=== PATIENT | female | born 1930 | race Caucasian/White ===

== ENCOUNTER 2016-07-10 15:46 | Emergency (ER) | payer MEDICARE ==
[2016-07-10 16:28] LABS: #Eosinphils 0.2 thou/uL (0.0-0.7); #Lymphocytes 0.9 thou/uL (1.20-3.40); #Monocytes 0.6 thou/uL (0.11-0.59); #Neutrophils 3.1 thou/uL (1.40-6.50); %Basophils 0.6 % (0.0-1.0); %Lymphocytes 18.2 % (21.0-51.0); %Monocytes 12.4 % (0.0-10.0); %Neutrophils 64.8 % (42.0-75.0); Hemoglobin 12.5 g/dL (12.0-16.0); Mean Corpuscular HGB CONC 33.7 g/dL (32.0-36.0); Mean Corpuscular Hemoglobin 30.3 pg (27.0-31.0); Mean Platelet Volume 6.2 fL (7.4-10.4); Platelet Count 252 thou/uL (130-400); RBC Distribution Width 12.5 % (11.5-14.5); Red Blood Cell (RBC) Count 4.13 mill/uL (4.20-5.40); White Blood Cell (WBC) Count 4.7 thou/uL (4.8-10.8)
== END 2016-07-10 16:37 | disposition home or self-care (01) ==
LOC: BURERS 15:46
DX: K92.2 Gastrointestinal hemorrhage, unspecified (principal)
CPT/HCPCS: 85025; 99283

== ENCOUNTER 2016-12-02 08:42 | Emergency (ER) | payer MEDICARE ==
[2016-12-02] MEDS ORDERED: HYDROcodone/Acetaminophen 5/325 mg Tablet ONE (10:23)
--- NOTE | 2016-12-02 12:35 | RAD ---
No fracture was seen. The hips, pubic rings, and other bony structures showed no acute changes. Th e SI joints are symmetrical and the symphysis shows no widening or offset. IMPRESSION: No acute findings POS: HOME
--- NOTE | 2016-12-02 12:38 | RAD ---
LEFT KNEE 3 VIEWS: DATE: 12/02/16. Arthritic changes are present consisting of medial joint space narrowing and osteophytes. There is also a large joint effusion. There may be a loose body within the suprapatellar bursa. MRI would b e needed to detect more subtle bony injury. Arterial calcifications are present. There are some ad ditional calcifications posterior to the knee joint that could be additional loose bodies. IMPRESSION: Osteoarthritis. Very large joint effusion without clear evidence of fracture. MRI might be needed (if possible) to detect subtle injuries not visible on the plain radiographs. POS: HOME
== END 2016-12-02 10:38 | disposition home or self-care (01) ==
LOC: BURERS 08:42
DX: S80.02XA Contusion of left knee, initial encounter (principal); S70.02XA Contusion of left hip, initial encounter; W19.XXXA Unspecified fall, initial encounter
CPT/HCPCS: 72170

== ENCOUNTER 2017-09-02 15:25 | Emergency (ER) | payer MEDICARE ==
[2017-09-02] MEDS ORDERED: Ondansetron HCl/PF 4 MG/2 ML Vial ONE (15:39)
[2017-09-02 15:45] LABS: #Basophils 0.1 thou/uL (0.0-0.2); #Eosinphils 0.2 thou/uL (0.0-0.7); #Lymphocytes 1.8 thou/uL (1.20-3.40); #Monocytes 0.5 thou/uL (0.11-0.59); #Neutrophils 4.6 thou/uL (1.40-6.50); %Basophils 0.8 % (0.0-1.0); %Eosinophils 3.2 % (0.0-10.0); %Lymphocytes 25.3 % (21.0-51.0); %Neutrophils 63.7 % (42.0-75.0); Hemoglobin 11.9 g/dL (12.0-16.0); Mean Corpuscular HGB CONC 34.5 g/dL (32.0-36.0); Mean Corpuscular Hemoglobin 30.8 pg (27.0-31.0); Mean Corpuscular Volume 89.3 fl (81.0-99.0); Mean Platelet Volume 6.8 fL (7.4-10.4); Platelet Count 255 thou/uL (130-400); RBC Distribution Width 12.1 % (11.5-14.5); Red Blood Cell (RBC) Count 3.85 mill/uL (4.20-5.40); White Blood Cell (WBC) Count 7.1 thou/uL (4.8-10.8)
[2017-09-02] MEDS ORDERED: Famotidine In NaCl 20 mg/50 ml Premix Bag ONE (15:54)
[2017-09-02 16:00] LABS: ALT (SGPT) 14 U/L (8-55); AST (SGOT) 23 U/L (5-34); Alkaline Phosphatase 73 U/L (40-150); Anion Gap 15 mmol/L (10-20); BUN (Urea Nitrogen) 17 mg/dL (9.8-20.1); Bilirubin, Total 0.4 mg/dL (0.2-1.2); Calc. Creatinine Clearance 0 mL/min (70-130); Calcium 9.4 mg/dL (7.8-10.44); Carbon Dioxide 24 mmol/L (23-31); Chloride 108 mmol/L (98-107); Estimated GFR-MDRD 54; Globulin 3.5 g/dL (2.4-3.5); Glucose 106 mg/dL (83-110); Lipase 31 U/L (8-78); Potassium 4.2 mmol/L (3.5-5.1); Protein, Total 7.5 g/dL (6.0-8.3); Sodium 143 mmol/L (136-145)
[2017-09-02 16:40] LABS: CKMB 0.9 ng/mL (0-6.6); Troponin I Less than 0.010 ng/mL (< 0.028)
[2017-09-02 17:21] LABS: Clarity Clear (Clear); Glucose, Urine (Dipstick) Negative (Negative); Leukocyte Trace (Negative); Nitrite Negative (Negative); Protein, Urine (Dipstick) Negative (Neg-Trace); Specific Gravity, Urine 1.008 (1.005-1.030); Urobilinogen 0.2 mg/dL (0.2-1.0); pH, Urine 5.5 (5.0-9.0)
[2017-09-02 17:22] LABS: Bilirubin Negative (Negative); Blood, Urine Trace (Negative)
[2017-09-02 17:23] LABS: RBC/HPF 0-3 HPF (0-3)
[2017-09-02 17:24] LABS: Bacteria/HPF 1+ HPF (None Seen); Squamous Epithelial 0-3 HPF (0-3); WBC/HPF 0-3 HPF (0-3)
== END 2017-09-02 17:46 | disposition home or self-care (01) ==
LOC: BURERS 15:25
DX: R11.2 Nausea with vomiting, unspecified (principal)
CPT/HCPCS: 80053; 81003; 81015; 82553; 83690; 84484; 85025; 87086; 96365; 96375; J2405

== ENCOUNTER 2017-11-06 17:23 | Emergency (ER) | payer MEDICARE ==
[2017-11-06 18:01] LABS: #Basophils 0.1 thou/uL (0.0-0.2); #Eosinphils 0.2 thou/uL (0.0-0.7); #Lymphocytes 2.2 thou/uL (1.20-3.40); #Monocytes 0.5 thou/uL (0.11-0.59); #Neutrophils 5.5 thou/uL (1.40-6.50); %Basophils 0.8 % (0.0-1.0); %Eosinophils 2.4 % (0.0-10.0); %Lymphocytes 26.2 % (21.0-51.0); %Monocytes 5.7 % (0.0-10.0); Hemoglobin 12.5 g/dL (12.0-16.0); Mean Corpuscular Hemoglobin 30.8 pg (27.0-31.0); Mean Corpuscular Volume 85.5 fL (78.0-98.0); Mean Platelet Volume 6.1 fL (7.4-10.4); Platelet Count 316 thou/uL (130-400); RBC Distribution Width 12.2 % (11.5-14.5); Red Blood Cell (RBC) Count 4.05 mill/uL (4.20-5.40); White Blood Cell (WBC) Count 8.5 thou/uL (4.8-10.8)
[2017-11-06 18:10] LABS: Clarity Clear (Clear); Specific Gravity, Urine 1.022 (1.005-1.030)
[2017-11-06 18:11] LABS: Bilirubin Small (Negative); Blood, Urine Trace (Negative); Glucose, Urine (Dipstick) Negative (Negative); Leukocyte Negative (Negative); Nitrite Negative (Negative); Protein, Urine (Dipstick) 100 mg/dL (Neg-Trace); Urobilinogen 0.2 mg/dL (0.2-1.0)
[2017-11-06 18:16] LABS: ALT (SGPT) 19 U/L (8-55); AST (SGOT) 30 U/L (5-34); Albumin 4.2 g/dL (3.4-4.8); Alkaline Phosphatase 73 U/L (40-150); Anion Gap 19 mmol/L (10-20); BUN (Urea Nitrogen) 19 mg/dL (9.8-20.1); Bilirubin, Total 0.4 mg/dL (0.2-1.2); Calc. Creatinine Clearance 0 mL/min (70-130); Carbon Dioxide 23 mmol/L (23-31); Chloride 104 mmol/L (98-107); Estimated GFR-MDRD 40; Globulin 3.7 g/dL (2.4-3.5); Glucose 187 mg/dL (83-110); Potassium 3.9 mmol/L (3.5-5.1); Protein, Total 7.9 g/dL (6.0-8.3); Sodium 142 mmol/L (136-145)
[2017-11-06 18:17] LABS: RBC/HPF 0-3 HPF (0-3); Squamous Epithelial 0-3 HPF (0-3); WBC/HPF 0-3 HPF (0-3)
[2017-11-06 18:18] LABS: Bacteria/HPF 2+ HPF (None Seen); Crystals/HPF 1+ AMORPH URATES HPF (Negative); Hyaline Casts/LPF 0-3 HYALINE CAST LPF (0-3 Hyaline)
[2017-11-06 18:19] LABS: Troponin I Less than 0.010 ng/mL (< 0.028)
--- NOTE | 2017-11-06 19:13 | RAD ---
PORTABLE CHEST: 11/06/17 An AP portable film at 1726 is compared with a 06/17/14 study. Right hemidiaphragm is a little more elevated today than before, but the entire breath is not as deep and I am not overly concerned with the finding. There might be a little bit of compressive atelectas is in the right base. No lobar consolidations or effusions are seen. There are probably some calcifie d nodes in the left hilum. Aortic calcification is evident. Degenerative changes are present in the g lenohumeral joints bilaterally, much more so in the right shoulder than the left. IMPRESSION: Chronic changes but no acute finding. POS: HOME
--- NOTE | 2017-11-06 19:16 | CT ---
CT BRAIN WITHOUT CONTRAST: 11/06/17 No prior films are available for comparison. Diffuse severe atrophy is present with moderate compensatory dilatation of the ventricle. There is no ventricular shift. There were no signs of acute stroke or edema. No bleeding was seen. 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 This entire area is replaced by enc ephalomalacia and very little remaining parenchyma. The visible paranasal sinuses are clear, as are t he mastoid air cells. IMPRESSION: Severe atrophy and chronic ischemic changes. No acute findings. POS: HOME
== END 2017-11-06 18:56 | disposition home or self-care (01) ==
LOC: BURERS 17:23
DX: R55 Syncope and collapse (principal); F03.90 Unspecified dementia, unspecified severity, without behavioral disturbance, psychotic disturbance, mood disturbance, and anxiety; Z79.899 Other long term (current) drug therapy
CPT/HCPCS: 51701; 70450; 71045; 80053; 81003; 81015; 82553; 83605; 83880; 84484; 85025; 87086; 93005; 94760; A4353

== ENCOUNTER 2018-02-14 18:08 | Inpatient (IN) | payer MEDICARE ==
[2018-02-14 18:52] LABS: #Basophils 0.1 thou/uL (0.0-0.2); #Eosinphils 0.2 thou/uL (0.0-0.7); #Lymphocytes 1.7 thou/uL (1.20-3.40); #Monocytes 0.5 thou/uL (0.11-0.59); %Eosinophils 2.5 % (0.0-10.0); %Lymphocytes 19.5 % (21.0-51.0); %Monocytes 6.3 % (0.0-10.0); %Neutrophils 70.7 % (42.0-75.0); Hemoglobin 11.6 g/dL (12.0-16.0); Mean Corpuscular Hemoglobin 31.7 pg (27.0-31.0); Mean Corpuscular Volume 90.7 fL (78.0-98.0); Mean Platelet Volume 8.1 fL (7.4-10.4); Platelet Count 213 thou/uL (130-400); RBC Distribution Width 11.8 % (11.5-14.5); Red Blood Cell (RBC) Count 3.65 mill/uL (4.20-5.40); White Blood Cell (WBC) Count 8.5 thou/uL (4.8-10.8)
[2018-02-14 19:02] LABS: ALT (SGPT) 11 U/L (8-55); AST (SGOT) 17 U/L (5-34); Albumin 3.9 g/dL (3.4-4.8); Alkaline Phosphatase 71 U/L (40-150); Anion Gap 14 mmol/L (10-20); BUN (Urea Nitrogen) 12 mg/dL (9.8-20.1); Bilirubin, Total 0.4 mg/dL (0.2-1.2); Calc. Creatinine Clearance 0 mL/min (70-130); Calcium 9.2 mg/dL (7.8-10.44); Carbon Dioxide 24 mmol/L (23-31); Chloride 108 mmol/L (98-107); Estimated GFR-MDRD 68; Globulin 3.4 g/dL (2.4-3.5); Glucose 104 mg/dL (83-110); Potassium 3.6 mmol/L (3.5-5.1); Protein, Total 7.3 g/dL (6.0-8.3); Sodium 142 mmol/L (136-145)
[2018-02-14 19:05] LABS: CKMB 0.9 ng/mL (0-6.6); Troponin I Less than 0.010 ng/mL (< 0.028)
[2018-02-14] MEDS ORDERED: Piperacillin/Tazobactam 3.375 GM VIAL ONE (19:20)
[2018-02-14] MEDS ORDERED: Sodium Chloride 0.9% 100 ML ONE (19:21)
[2018-02-14 19:50] LABS: Bilirubin Negative (Negative); Blood, Urine Trace (Negative); Clarity Clear (Clear); Glucose, Urine (Dipstick) Negative (Negative); Leukocyte Negative (Negative); Nitrite Negative (Negative); Protein, Urine (Dipstick) Negative (Neg-Trace); Specific Gravity, Urine 1.025 (1.005-1.030); Urobilinogen 0.2 mg/dL (0.2-1.0); pH, Urine 5.5 (5.0-9.0)
[2018-02-14 20:01] LABS: Bacteria/HPF Rare-Few HPF (None Seen); Other Microscopic Description 1+ MUCUS; RBC/HPF 0-3 HPF (0-3); Squamous Epithelial 0-3 HPF (0-3); WBC/HPF 0-3 HPF (0-3)
[2018-02-14] MEDS ORDERED: Acetaminophen 325 MG TAB PO PRN (21:05)
[2018-02-14] MEDS ORDERED: DIAZEPAM 2 MG TAB PO PRN (21:19)
[2018-02-14] MEDS: Donepezil HCl 10 MG TAB PO SCH (21:50)
[2018-02-14] MEDS: traMADol HCl 50 MG TAB PO PRN (21:50)
[2018-02-14] MEDS: Primidone 50 MG TAB PO SCH (21:51)
[2018-02-14] MEDS: Mirtazapine 15 MG TAB PO SCH (21:51)
[2018-02-14] MEDS: Promethazine DM 6.25-15mg/5ml 120 ML BOT PO PRN (21:51)
--- NOTE | 2018-02-14 22:17 | RAD ---
PORTABLE CHEST 02/14/18 An AP portable film at 1810 is compared with an 11/06/17 study. The heart is stable in size. There is no congestive change or pleural effusion. Calcification is seen in the aorta as usual. Severe degenerative changes are present in the shoulders. IMPRESSION: No acute finding. POS: HOME
[2018-02-15] MEDS: Piperacillin/Tazobactam 3.375 GM in Sodium Chloride 0.9% 100 ML IVPB SCH ×4 (02:30→20:25)
[2018-02-15] MEDS: Naproxen 500 MG TAB PO SCH ×2 (08:39→17:10)
[2018-02-15] MEDS: Sodium Chloride 0.9% 1,000 ML IV SCH (15:26)
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
[2018-02-15] MEDS: Primidone 50 MG TAB PO SCH (20:25)
[2018-02-15] MEDS: Mirtazapine 15 MG TAB PO SCH (20:25)
[2018-02-15] MEDS: Donepezil HCl 10 MG TAB PO SCH (20:25)
[2018-02-15] MEDS: Enoxaparin Sodium 30 MG/0.3 ML SYRINGE SC SCH (20:26)
[2018-02-15] MEDS: Promethazine DM 6.25-15mg/5ml 120 ML BOT PO PRN (23:07)
[2018-02-16] MEDS: Piperacillin/Tazobactam 3.375 GM in Sodium Chloride 0.9% 100 ML IVPB SCH ×4 (02:09→19:56)
[2018-02-16 05:20] LABS: #Eosinphils 0.2 thou/uL (0.0-0.7); #Monocytes 0.7 thou/uL (0.11-0.59); #Neutrophils 4.1 thou/uL (1.40-6.50); %Basophils 0.8 % (0.0-1.0); %Eosinophils 4.1 % (0.0-10.0); %Monocytes 11.3 % (0.0-10.0); %Neutrophils 67.9 % (42.0-75.0); Hemoglobin 9.5 g/dL (12.0-16.0); Mean Corpuscular HGB CONC 34.5 g/dL (32.0-36.0); Mean Corpuscular Hemoglobin 31.3 pg (27.0-31.0); Mean Corpuscular Volume 90.7 fL (78.0-98.0); Mean Platelet Volume 6.9 fL (7.4-10.4); Platelet Count 193 thou/uL (130-400); Red Blood Cell (RBC) Count 3.05 mill/uL (4.20-5.40)
[2018-02-16 05:32] LABS: Anion Gap 14 mmol/L (10-20); BUN (Urea Nitrogen) 14 mg/dL (9.8-20.1); Calc. Creatinine Clearance 50 mL/min (70-130); Calcium 8.2 mg/dL (7.8-10.44); Carbon Dioxide 21 mmol/L (23-31); Chloride 110 mmol/L (98-107); Estimated GFR-MDRD 64; Glucose 103 mg/dL (83-110); Potassium 3.1 mmol/L (3.5-5.1); Sodium 142 mmol/L (136-145)
[2018-02-16] MEDS: Sodium Chloride 0.9% 1,000 ML IV SCH ×2 (06:16→19:53)
[2018-02-16] MEDS: Naproxen 500 MG TAB PO SCH ×2 (09:23→16:29)
[2018-02-16] MEDS ORDERED: Mag-Al Plus 1200 MG/1200 MG/120 MG/30 ML UDCUP PO PRN (14:41)
[2018-02-16] MEDS: Promethazine DM 6.25-15mg/5ml 120 ML BOT PO PRN ×2 (15:29→22:40)
[2018-02-16] MEDS: traMADol HCl 50 MG TAB PO PRN (15:30)
[2018-02-16] MEDS: Potassium Chloride 20 MEQ TAB PO SCH (16:29)
[2018-02-16 16:46] VITALS: BMI 26.8
[2018-02-16] MEDS: Primidone 50 MG TAB PO SCH (20:04)
[2018-02-16] MEDS: Mirtazapine 15 MG TAB PO SCH (20:05)
[2018-02-16] MEDS: Donepezil HCl 10 MG TAB PO SCH (20:05)
[2018-02-16] MEDS: Enoxaparin Sodium 30 MG/0.3 ML SYRINGE SC SCH (20:05)
[2018-02-17] MEDS: Piperacillin/Tazobactam 3.375 GM in Sodium Chloride 0.9% 100 ML IVPB SCH ×2 (01:59→08:46)
[2018-02-17] MEDS: Promethazine DM 6.25-15mg/5ml 120 ML BOT PO PRN (06:48)
[2018-02-17 07:02] VITALS: BP 130/61; TEMP 98.8
[2018-02-17] MEDS: Potassium Chloride 20 MEQ TAB PO SCH (08:46)
[2018-02-17] MEDS: Naproxen 500 MG TAB PO SCH (08:46)
== END 2018-02-17 09:47 | disposition home or self-care (01) | DRG 195 ==
LOC: BURERS 18:08 → BURMED 19:23 → UNDOADMIN 19:37 → BURMED 19:37
PROVIDERS: ADMIT Family Medicine; ATTEND Family Medicine
DX: J18.9 Pneumonia, unspecified organism (principal); F03.90 Unspecified dementia, unspecified severity, without behavioral disturbance, psychotic disturbance, mood disturbance, and anxiety; F41.9 Anxiety disorder, unspecified; G47.00 Insomnia, unspecified; R26.9 Unspecified abnormalities of gait and mobility; M19.90 Unspecified osteoarthritis, unspecified site; R63.0 Anorexia; J34.89 Other specified disorders of nose and nasal sinuses; J20.9 Acute bronchitis, unspecified; Z66 Do not resuscitate; Z68.26 Body mass index [BMI] 26.0-26.9, adult
CPT/HCPCS: 36415; 51701; 71045; 80048; 80053; 81003; 81015; 82553; 83605; 84484; 85025; 87040; 87086; 87804; 93005; 94760; 96365; A4353; G8978-GP-CJ; G8979-GP-CI; G8987-GO-CL; G8988-GO-CK; J1650; J2543; J7050; J7620

== ENCOUNTER 2018-07-13 11:14 | Outpatient (CLI) | payer MEDICARE ==
--- NOTE | 2018-07-13 15:12 | RAD ---
LUMBAR SPINE 3 VIEWS: DATE: 07/13/2018. FINDINGS: Comparison is made with the 01/27/2013 study. The bones are osteoporotic as usual which could mask subtle injuries. Disk space narrowing is presen t at L1-L2, which was present before, but it has advanced further and the end plates are a bit irregu lar now. The other disk spaces were normal in height. No fracture was identified. There was no dis location. The SI joints are symmetrical, though not seen optimally. Very minimal curvature of the u pper spine is present convex right. The aorta and iliac arteries are densely calcified. IMPRESSION: Degenerative changes, particularly at the L1-L2 disk space. These have advanced since 2012. Cross-s ectional imaging would be needed to define it further and tell if there was any neural impingement. POS: HOME
--- NOTE | 2018-07-13 15:13 | RAD ---
THORACIC SPINE: DATE: 07/13/2018. FINDINGS: Three views show no fracture or area of bony destruction. There may be the barest amount of wedging of one of the midthoracic vertebra, but the amount does not seem significant. The disk spaces are al l preserved. Arterial calcifications are present in the aorta. IMPRESSION: No acute findings. POS: HOME
== END 2018-07-13 11:15 | disposition home or self-care (01) ==
LOC: BURRAD 11:14
PROVIDERS: ATTEND Internal Medicine Rheumatology
DX: M54.5 Low back pain (principal); M47.816 Spondylosis without myelopathy or radiculopathy, lumbar region
CPT/HCPCS: 72072; 72100

== ENCOUNTER 2018-11-05 10:10 | Emergency (ER) | payer MEDICARE ==
[2018-11-05 10:45] LABS: #Basophils 0.1 thou/uL (0.0-0.2); #Eosinphils 0.5 thou/uL (0.0-0.7); #Lymphocytes 1.2 thou/uL (1.20-3.40); #Monocytes 0.7 thou/uL (0.11-0.59); #Neutrophils 5.4 thou/uL (1.40-6.50); %Eosinophils 6.4 % (0.0-10.0); %Lymphocytes 14.8 % (21.0-51.0); %Monocytes 9.2 % (0.0-10.0); %Neutrophils 68.6 % (42.0-75.0); Hemoglobin 10.8 g/dL (12.0-16.0); Mean Corpuscular HGB CONC 32.8 g/dL (32.0-36.0); Mean Corpuscular Hemoglobin 32.3 pg (27.0-31.0); Mean Corpuscular Volume 98.5 fL (78.0-98.0); Mean Platelet Volume 7.4 fL (7.4-10.4); Platelet Count 263 thou/uL (130-400); RBC Distribution Width 13.1 % (11.5-14.5); Red Blood Cell (RBC) Count 3.35 mill/uL (4.20-5.40); White Blood Cell (WBC) Count 7.9 thou/uL (4.8-10.8)
[2018-11-05 10:48] LABS: Bilirubin Moderate (Negative); Blood, Urine Negative (Negative); Clarity Clear (Clear); Glucose, Urine (Dipstick) Negative (Negative); Leukocyte Negative (Negative); Nitrite Negative (Negative); Protein, Urine (Dipstick) Trace mg/dL (Neg-Trace); Urobilinogen 0.2 mg/dL (Less than 2)
[2018-11-05 10:57] LABS: ALT (SGPT) 11 U/L (8-55); AST (SGOT) 22 U/L (5-34); Albumin 3.9 g/dL (3.4-4.8); Alkaline Phosphatase 81 U/L (40-150); Anion Gap 17 mmol/L (10-20); BUN (Urea Nitrogen) 15 mg/dL (9.8-20.1); Bilirubin, Total 0.4 mg/dL (0.2-1.2); Calc. Creatinine Clearance 0 mL/min (70-130); Calcium 9.4 mg/dL (7.8-10.44); Carbon Dioxide 21 mmol/L (23-31); Chloride 107 mmol/L (98-107); Estimated GFR-MDRD 49; Globulin 3.5 g/dL (2.4-3.5); Glucose 136 mg/dL (83-110); Protein, Total 7.4 g/dL (6.0-8.3); Sodium 141 mmol/L (136-145)
--- NOTE | 2018-11-05 19:50 | CT ---
CT OF THE BRAIN WITHOUT CONTRAST: 11/05/18 Comparison is made with a 07/25/18 study. Diffuse severe atrophy is present with moderate compensatory dilatation of the ventricles. Deep white matter lucency is typical of chronic microvascular ischemia. The inferior anterior portion of the le ft temporal lobe is almost completely replaced by an area of CSF now indicating severe atrophy over t ezio. I see no evidence of an acute stroke, bleeding, mass or edema. The visible sinuses are clear. IMPRESSION: Severe atrophy and chronic ischemic change but no acute intracranial findings. POS: HOME
--- NOTE | 2018-11-05 20:02 | RAD ---
LEFT HIP TWO VIEWS: 11/05/18 No fracture was appreciated. Comparison is made with an 12/02/16 view of the pelvis. All bones appeare d intact. The joint space is normal in width and the articular surfaces are smooth. The adjacent pubi c ring appears intact. Arterial calcifications are noted in the femoral vessels. IMPRESSION: No acute findings. All lines seen in the femoral neck seem to be trabecular markings. If pain persist s, then delayed follow-up images could be required. POS: HOME
--- NOTE | 2018-11-05 20:03 | RAD ---
PELVIS: 11/05/18 Comparison is made with the prior study of 12/02/16. The bony pelvis appears intact with no sign of fracture. Both hips appear normal for age. There is no widening of the symphysis. The pubic rings appear intact. The SI joints are symmetrical. IMPRESSION: No acute bony findings. POS: HOME
== END 2018-11-05 11:18 | disposition home or self-care (01) ==
LOC: BURERS 10:10
DX: S70.02XA Contusion of left hip, initial encounter (principal); D64.9 Anemia, unspecified; F03.90 Unspecified dementia, unspecified severity, without behavioral disturbance, psychotic disturbance, mood disturbance, and anxiety; Z79.899 Other long term (current) drug therapy; W06.XXXA Fall from bed, initial encounter
CPT/HCPCS: 36415; 51701; 70450; 72170; 80053; 81003; 83605; 84484; 85025; 93005; 94760

== ENCOUNTER 2018-11-15 15:56 | Emergency (ER) | payer MEDICARE ==
--- NOTE | 2018-11-15 16:36 | RAD ---
XR Chest 1 View Portable History: Altered mental status. Fall. Comparison: Radiograph July 25, 2018 Findings: Heart size upper limits of normal. Dense mitral annular calcifications. Moderate aortic olu cifications. Punctate radiopacity projects of the right distal clavicle may be outside the patient versus artifact. Bilateral rotator cuff arthropathy and glenohumeral degenerative disease. Impression: Chronic findings. No acute intrathoracic abnormality.
[2018-11-15] MEDS ORDERED: Naloxone HCl 0.4 mg/ml Vial ONE (16:46)
[2018-11-15 16:51] LABS: Bilirubin Small (Negative); Blood, Urine Negative (Negative); Clarity Cloudy (Clear); Glucose, Urine (Dipstick) Negative (Negative); Leukocyte Negative (Negative); Nitrite Negative (Negative); Protein, Urine (Dipstick) Negative (Neg-Trace); Urobilinogen 0.2 mg/dL (Less than 2)
[2018-11-15 16:53] LABS: #Basophils 0.1 thou/uL (0.0-0.2); #Eosinphils 0.5 thou/uL (0.0-0.7); #Monocytes 0.8 thou/uL (0.11-0.59); #Neutrophils 5.9 thou/uL (1.40-6.50); %Basophils 1.1 % (0.0-1.0); %Eosinophils 5.9 % (0.0-10.0); %Lymphocytes 12.1 % (21.0-51.0); %Monocytes 9.5 % (0.0-10.0); %Neutrophils 71.4 % (42.0-75.0); Hemoglobin 9.8 g/dL (12.0-16.0); Mean Corpuscular Hemoglobin 31.8 pg (27.0-31.0); Mean Corpuscular Volume 99.6 fL (78.0-98.0); Mean Platelet Volume 6.2 fL (7.4-10.4); Platelet Count 244 thou/uL (130-400); RBC Distribution Width 12.4 % (11.5-14.5); Red Blood Cell (RBC) Count 3.07 mill/uL (4.20-5.40); White Blood Cell (WBC) Count 8.3 thou/uL (4.8-10.8)
[2018-11-15 16:58] LABS: INR-International Normal Ratio 1.1; Prothrombin Time 14.3 SEC (12.0-14.7)
[2018-11-15 16:59] LABS: Amphetamine Not Detected (NotDetected); Barbiturates Screen Detected (NotDetected); Benzodiazepine Screen Not Detected (NotDetected); Cocaine Metabolite Screen Not Detected (NotDetected); Medtox Control Line Valid? VALID (VALID); Methadone Not Detected (NotDetected); Methamphetamine Not Detected (NotDetected); Opiate Screen Not Detected (NotDetected); Oxycodone Screen Not Detected (NotDetected); Phencyclidine (PCP) Not Detected (NotDetected); THC/Cannabinoid Screen Not Detected (NotDetected); Tricyclic Screen Not Detected (NotDetected)
[2018-11-15 16:59] LABS: PTT 29.7 SEC (22.9-36.1)
[2018-11-15 17:06] LABS: ALT (SGPT) Less than 7 U/L (8-55); AST (SGOT) 18 U/L (5-34); Albumin 3.2 g/dL (3.4-4.8); Alkaline Phosphatase 77 U/L (40-150); Anion Gap 14 mmol/L (10-20); BUN (Urea Nitrogen) 25 mg/dL (9.8-20.1); Bilirubin, Total 0.2 mg/dL (0.2-1.2); Calc. Creatinine Clearance 0 mL/min (70-130); Calcium 8.9 mg/dL (7.8-10.44); Carbon Dioxide 22 mmol/L (23-31); Chloride 109 mmol/L (98-107); Estimated GFR-MDRD 51; Globulin 3.1 g/dL (2.4-3.5); Glucose 142 mg/dL (83-110); Potassium 4.6 mmol/L (3.5-5.1); Protein, Total 6.3 g/dL (6.0-8.3); Sodium 140 mmol/L (136-145)
== END 2018-11-15 17:35 | disposition home or self-care (01) ==
LOC: BURERS 15:56
DX: R53.1 Weakness (principal); T40.4X5A Adverse effect of other synthetic narcotics, initial encounter; T48.1X5A Adverse effect of skeletal muscle relaxants [neuromuscular blocking agents], initial encounter; F03.90 Unspecified dementia, unspecified severity, without behavioral disturbance, psychotic disturbance, mood disturbance, and anxiety; Z79.899 Other long term (current) drug therapy
CPT/HCPCS: 51701; 71045; 80053; 80306; 81003; 83605; 84484; 85025; 85610; 85730; 87086; 93005; 96374; A4353; J2310